=== PATIENT | female | born 1980 | race Caucasian/White ===

== ENCOUNTER 2020-06-03 08:54 | Emergency (ER) | payer OTHER ==
[~2020-06-03] VITALS: Ht 162.5 cm; Wt 52.0 kg
[2020-06-03 09:27] VITALS: BP 152/91
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
[2020-06-03] MEDS ORDERED: RT-ALBUINH IH (10:49)
[2020-06-03] MEDS ORDERED: PRD20T PO (10:49)
== END 2020-06-03 11:00 | disposition home or self-care (01) ==
LOC: ER FS 08:57
DX: S20.211A Contusion of right front wall of thorax, initial encounter (principal); S49.81XA Other specified injuries of right shoulder and upper arm, initial encounter; S59.801A Other specified injuries of right elbow, initial encounter; J18.9 Pneumonia, unspecified organism; V89.2XXA Person injured in unspecified motor-vehicle accident, traffic, initial encounter
CPT/HCPCS: 71045; 73030; 73080; 93005